=== PATIENT | female | born 1990 | race Caucasian/White ===

== ENCOUNTER → 2016-11-16 | Outpatient (CLI) | payer BC ==
[~2016-11-16] MED LIST: CYCL5TAB PO; ETONMIS VAGRING; FEXO1TAB49 PO; GLC/500 PO; IBUP-1050 PO
[2016-11-16 16:22] LABS: URINE APPEARANCE CLEAR (CLEAR); URINE BILIRUBIN NEG (NEG); URINE COLOR YELLOW; URINE NITRITE NEG (NEG); UROBILINOGEN NEG (NEG)
[2016-11-16 16:27] LABS: MANUAL MICROSCOPIC REQUIRED? NO; REVIEW REQ? NO
== END | disposition home or self-care (01) ==
LOC: C.LABSPEC 15:54
PROVIDERS: ATTEND Obstetrics & Gynecology
DX: R30.0 Dysuria (principal)

== ENCOUNTER → 2017-01-28 | Outpatient (CLI) | payer BC ==
[2017-01-28 10:52] LABS: PROLACTIN 22.39 ng/mL; THYROID STIMULATING HORMONE 2.37 uIu/ml (0.300-4.500)
[2017-01-28 10:54] LABS: CALCULATED INSULIN SENSITIVITY 0.281; GLUCOSE LOG 1.9243; INSULIN FASTING 42.9 mU/L (3-25); INSULIN LOG 1.6325
== END | disposition home or self-care (01) ==
LOC: C.LAB1850 09:12
PROVIDERS: ATTEND Obstetrics & Gynecology
DX: N92.6 Irregular menstruation, unspecified (principal)

== ENCOUNTER → 2017-02-02 | Outpatient (CLI) | payer BC ==
[2017-02-02 10:12] LABS: CHOLESTEROL/HDL RATIO 2.9
== END | disposition home or self-care (01) ==
LOC: C.LAB1850 08:22
PROVIDERS: ATTEND Obstetrics & Gynecology
DX: E88.81 Metabolic syndrome and other insulin resistance (principal)

== ENCOUNTER 2017-07-10 08:18 | Emergency (ER) | payer BC ==
[~2017-07-10] VITALS: Ht 165.1 cm; Wt 109.5 kg
[2017-07-10 08:23] VITALS: TEMP 37; Ht 165.1 cm; Wt 109.5 kg
[2017-07-10] MEDS ORDERED: GLC/500 PO (08:42)
[2017-07-10] MEDS ORDERED: FEXO1TAB49 PO (08:42)
[2017-07-10] MEDS ORDERED: CYCL5TAB PO (08:42)
[2017-07-10] MEDS ORDERED: ETONMIS VAGRING (08:42)
[2017-07-10] MEDS ORDERED: IBUP-1050 PO (08:42)
--- NOTE | 2017-07-10 09:37 | DIAGNOSTIC IMAGING REPORT ---
LUMBAR SPINE 5 VIEWS HISTORY: Low back pain. COMPARISON: None. FINDINGS: There is no fracture. No subluxation. Disc spaces are preserved. S1 is demonstrated to be a transitional vertebra. Hypoplastic S1-S2 disc space is noted. IMPRESSION: No fracture or subluxation within the lumbar spine. Electronically signed by: Dean Epps M.D. 07/10/2017 9:36 AM Dictated Date/Time: 07/10/2017 9:35 AM
[2017-07-10 10:02] VITALS: BP 123/74; PULSE 77; O2SAT 97
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
== END 2017-07-10 10:03 | disposition home or self-care (01) ==
LOC: C.EDB 08:19
DX: M54.16 Radiculopathy, lumbar region (principal)

== ENCOUNTER → 2017-09-28 | Outpatient (CLI) | payer BC ==
[2017-09-28 17:50] LABS: BASO % 0.5 %; BASO ABS # 0.05 K/uL (0-0.2); COMPLETE YES; EOS % 1.1 %; HEMATOCRIT 41.2 % (37-47); IG% 0.4 %; LYMPH % 30.8 %; LYMPH ABS # 2.98 K/uL (1.2-3.4); MEAN CELL VOLUME 88.6 fL (80-100); MEAN CORPUSCULAR HEMOGLOBIN 28.6 pg (25-34); MEAN CORPUSCULAR HGB CONC 32.3 g/dl (32-36); MEAN PLATELET VOLUME 9.6 fL (7.4-10.4); MONO % 7.1 %; NEUT % 60.1 %; PLATELET COUNT 353 K/uL (130-400); RED BLOOD COUNT 4.65 M/uL (4.2-5.4); WHITE BLOOD COUNT 9.66 K/uL (4.8-10.8)
== END | disposition home or self-care (01) ==
LOC: C.LABPVFM 13:58
PROVIDERS: ATTEND Family Medicine Adult Medicine
DX: R53.83 Other fatigue (principal)

== ENCOUNTER → 2017-11-09 | Outpatient (CLI) | payer OTHER ==
[2017-11-09 16:38] LABS: ALBUMIN 3.4 gm/dl (3.4-5.0); ALT/SGPT 26 U/L (12-78); BLOOD UREA NITROGEN 12 mg/dl (7-18); CALCIUM 9.6 mg/dl (8.5-10.1); CARBON DIOXIDE 24 mmol/L (21-32); CREATININE 0.82 mg/dl (0.60-1.20); GLUCOSE 76 mg/dl (70-99); POTASSIUM 3.8 mmol/L (3.5-5.1); SODIUM 137 mmol/L (136-145)
[2017-11-09 16:49] LABS: ALKALINE PHOSPHATASE 74 U/L (45-117); AST/SGOT 14 U/L (15-37); TOTAL PROTEIN 7.5 gm/dl (6.4-8.2)
[2017-11-10 07:20] LABS: HEMOGLOBIN A1C 5.3 % (4.5-5.6)
== END | disposition home or self-care (01) ==
LOC: C.LAB1850 14:48
PROVIDERS: ATTEND Family Medicine
DX: R53.82 Chronic fatigue, unspecified (principal)

== ENCOUNTER → 2018-01-05 | Outpatient (CLI) | payer OTHER | END | disposition home or self-care (01) | LOC: C.LAB1850 09:30 | PROVIDERS: ATTEND Family Medicine | DX: E55.9 Vitamin D deficiency, unspecified (principal) ==

== ENCOUNTER 2018-01-19 17:43 | Emergency (ER) | payer OTHER ==
[~2018-01-19] VITALS: Ht 167.6 cm; Wt 112.0 kg
[2018-01-19 17:45] VITALS: TEMP 36.6; Ht 167.6 cm; Wt 112.0 kg
[2018-01-19] MEDS ORDERED: SODIUM CHLORIDE 0.9% 500ML 500 ML IV STA (18:04)
[2018-01-19] MEDS ORDERED: LORAZEPAM 1 MG TAB PO STA (18:04)
--- NOTE | 2018-01-19 18:04 | EMERGENCY ROOM VISIT NOTE ---
History Report prepared by Rashida: Maurilio Barrera Under the Supervision of: Dr. Huy Ruiz M.D. First contact with patient: 17:49 Chief Complaint: TACHYCARDIA Stated Complaint: TACHYCARDIA, WEAKNESS, DIZZY History of Present Illness The patient is a 27 year old female with a past medical history of anxiety, PTSD, and pre-diabetes who presents to the ED with a cc of waxing and waning tachycardia beginning today. Positive for a headache, dizziness, and nausea. Negative for vomiting and leg edema. The patient states that she has been weaning off her propranolol because it has been giving her rebound tachycardia. She notes that today was her first day without taking any since she started taking it in August. She reports that her symptoms have been constant all day. The patient states that when she moves, her heart rate increases and her "head starts spinning." She notes that her symptoms improve when she lies down. She reports that she has a NuvaRing in place and that her last normal menstrual period was two months ago. Source of History: patient Onset: today Position: other (generalized) Quality: other (tachycardia) Timing: waxes/wanes Modifying Factors (Worsening): movement Modifying Factors (Relieving): other (lying down) Associated Symptoms: + headache, + nausea, No vomiting Note: The patient denies any leg edema. She also complains of dizziness. Review of Systems See HPI for pertinent positives and negatives. A total of ten systems were reviewed and were otherwise negative. Past Medical & Surgical Medical Problems: (1) Anxiety (2) Irregular Menstruation, Unspecified (3) Metabolic Syndrome (4) Pre-diabetes (5) PTSD (post-traumatic stress disorder) Surgical Problems: (1) No history of previous surgery Family History Cancer Diabetes mellitus Heart disease Hypertension Lung disease Social History Smoking Status: Never Smoker Alcohol Use: occasionally Marital Status: Housing Status: lives with family Occupation Status: unemployed Current/Historical Medications Scheduled Etonogestrel/Ethinyl Estradiol (Nuvaring), 1 EA VAGRING MONTHLY Fexofenadine Hcl (Lana Allergy), 180 MG PO DAILY Fluoxetine (Prozac), 40 MG PO DAILY Metformin Hcl (Glucophage), 500 MG PO QAM Metformin Hcl (Glucophage), 1,000 MG PO QPM Scheduled PRN Cyclobenzaprine Hcl (Flexeril), 5-10 MG PO Q12 PRN for Headache Ibuprofen (Advil), 600 MG PO Q4H PRN for Headache Allergies Coded Allergies: Naltrexone (Unverified Allergy, Severe, suicidal hallucinations, 01/19/18) Sulfa Antibiotics (Unverified Allergy, Intermediate, RASH, 07/10/17) Physical Exam Vital Signs Date Time Temp Pulse Resp B/P (MAP) Pulse Ox O2 Delivery O2 Flow Rate FiO2 01/19/18 20:07 75 16 115/87 98 01/19/18 19:09 80 16 130/82 98 Room Air 01/19/18 18:30 98 Room Air 01/19/18 18:11 72 01/19/18 18:08 98 Room Air 01/19/18 17:45 36.6 107 18 135/87 100 Room Air Physical Exam GENERAL: Awake, alert, mildly anxious-appearing, NAD, obese. HENT: Normocephalic, atraumatic. EYES: Normal conjunctiva. Sclera non-icteric. NECK: Supple. No nuchal rigidity. FROM. RESPIRATORY: CTAB, no rhonchi, wheezing, crackles CARDIAC: RRR, no MRG ABDOMEN: Soft, NTND, BS+ MSK: No chest wall TTP, no LE edema NEURO: GCS 15, CN 2-12 intact, moves all 4s on command SKIN: No rash or jaundice noted. Medical Decision & Procedures ER Provider Diagnostic Interpretation: Radiology results as stated below per my review and radiologist interpretation: SINGLE VIEW CHEST FINDINGS: An AP, portable, upright chest radiograph is obtained. No prior studies are available for comparison at the time of dictation. The examination is mildly degraded by portable technique and patient rotation. The cardiomediastinal silhouette is unremarkable. The lungs and pleural spaces are clear. No pneumothorax is seen. The bony thorax is grossly intact. IMPRESSION: No active disease in the chest. Electronically signed by: Cameron Yeager M.D. 01/19/2018 6:19 PM Laboratory Results 01/19/18 18:06 Red Blood Count 4.81, Mean Corpuscular Volume 84.2, Mean Corpuscular Hemoglobin 27.7, Mean Corpuscular Hemoglobin Concent 32.8, Mean Platelet Volume 9.0, Neutrophils (%) (Auto) 61.5, Lymphocytes (%) (Auto) 30.0, Monocytes (%) (Auto) 7.1, Eosinophils (%) (Auto) 0.7, Basophils (%) (Auto) 0.2, Neutrophils # (Auto) 7.47, Lymphocytes # (Auto) 3.64, Monocytes # (Auto) 0.86, Eosinophils # (Auto) 0.09, Basophils # (Auto) 0.03 01/19/18 18:06 Test 01/19/18 18:06 01/19/18 19:15 White Blood Count 12.15 K/uL (4.8-10.8) Red Blood Count 4.81 M/uL (4.2-5.4) Hemoglobin 13.3 g/dL (12.0-16.0) Hematocrit 40.5 % (37-47) Mean Corpuscular Volume 84.2 fL (80-100) Mean Corpuscular Hemoglobin 27.7 pg (25-34) Mean Corpuscular Hemoglobin Concent 32.8 g/dl (32-36) Platelet Count 364 K/uL (130-400) Mean Platelet Volume 9.0 fL (7.4-10.4) Neutrophils (%) (Auto) 61.5 % Lymphocytes (%) (Auto) 30.0 % Monocytes (%) (Auto) 7.1 % Eosinophils (%) (Auto) 0.7 % Basophils (%) (Auto) 0.2 % Neutrophils # (Auto) 7.47 K/uL (1.4-6.5) Lymphocytes # (Auto) 3.64 K/uL (1.2-3.4) Monocytes # (Auto) 0.86 K/uL (0.11-0.59) Eosinophils # (Auto) 0.09 K/uL (0-0.5) Basophils # (Auto) 0.03 K/uL (0-0.2) RDW Standard Deviation 43.2 fL (36.4-46.3) RDW Coefficient of Variation 13.9 % (11.5-14.5) Immature Granulocyte % (Auto) 0.5 % Immature Granulocyte # (Auto) 0.06 K/uL (0.00-0.02) Anion Gap 12.0 mmol/L (3-11) Est Creatinine Clear Calc Drug Dose 115.7 ml/min Estimated GFR () 98.8 Estimated GFR (Non- 85.3 BUN/Creatinine Ratio 13.0 (10-20) Calcium Level 9.0 mg/dl (8.5-10.1) Magnesium Level 2.4 mg/dl (1.8-2.4) Total Bilirubin 0.2 mg/dl (0.2-1) Direct Bilirubin < 0.1 mg/dl (0-0.2) Aspartate Amino Transf (AST/SGOT) 7 U/L (15-37) Alanine Aminotransferase (ALT/SGPT) 17 U/L (12-78) Alkaline Phosphatase 87 U/L (45-117) Total Protein 7.5 gm/dl (6.4-8.2) Albumin 3.3 gm/dl (3.4-5.0) Thyroid Stimulating Hormone (TSH) 2.030 uIu/ml (0.300-4.500) Urine Color YELLOW Urine Appearance CLEAR (CLEAR) Urine pH 6.5 (4.5-7.5) Urine Specific Irving 1.025 (1.000-1.030) Urine Protein NEG (NEG) Urine Glucose (UA) NEG (NEG) Urine Ketones NEG (NEG) Urine Occult Blood NEG (NEG) Urine Nitrite NEG (NEG) Urine Bilirubin NEG (NEG) Urine Urobilinogen NEG (NEG) Urine Leukocyte Esterase NEG (NEG) Urine WBC (Auto) 0 /hpf (0-5) Urine RBC (Auto) 0-4 /hpf (0-4) Urine Hyaline Casts (Auto) 1-5 /lpf (0-5) Urine Epithelial Cells (Auto) 5-10 /lpf (0-5) Urine Bacteria (Auto) NEG (NEG) Urine Test NEG (NEG) Laboratory results reviewed by me Medications Administered Medications (Trade) Dose Ordered Sig/Paramjit Route Start Time Stop Time Status Last Admin Dose Admin Lorazepam (Ativan Tab) 1 mg NOW STAT PO 01/19/18 18:04 01/19/18 18:06 DC 01/19/18 18:39 1 MG Sodium Chloride 500 ml @ 999 mls/hr Q31M STAT IV 01/19/18 18:04 01/19/18 18:34 DC 01/19/18 18:39 999 MLS/HR ECG Per My Interpretation Indication: tachycardia Rate (beats per minute): 82 Rhythm: normal sinus Findings: RBBB (incomplete), T-wave inversion (in lead 3), other (Normal intervals, normal axis) Comparison ECG Date: no prior available ED Course 1752: The patient was evaluated in room C9. A complete history and physical exam was performed. 2151: I reevaluated the patient. Discussed results and discharge instructions: She verbalized understanding and agreement. The patient is ready for discharge. Medical Decision Nursing notes reviewed. Ancillary studies and prior records reviewed. The patient is a 27 year old female with a past medical history of anxiety, PTSD, and pre-diabetes who presents to the ED with a cc of waxing and waning tachycardia beginning today. Positive for a headache and nausea. Negative for vomiting and leg edema. Differential diagnosis: Etiologies such as premature contractions, electrolyte abnormality, cardiac dysrhythmia, thyroid dysfunction, pulmonary embolism, infection, gastrointestinal, as well as others were entertained. Patient was seen and evaluated the bedside. Patient does have a history of anxiety and has been on propranolol for anxiety. Patient has been self weaning and was initially on 60 twice daily. Yesterday she did take 10 twice daily. Patient states that she does feel that she has palpitations and that her heart races. Patient denies feeling anxious although she does say that the racing heart does make her feel mildly uncomfortable and dizzy. Patient denies any syncope. Patient denies any prolonged or recent vaginal bleeding, bright red blood per rectum, melenic stool, or vomiting with blood. Patient's LMP was 2 months ago. On exam the patient is very well-appearing. Patient did have blood work completed, EKG, TSH, and was given some p.o. Ativan and IV fluids. Patient EKG was fairly unremarkable. It did show incomplete right bundle branch block and a TW I in lead III but not in contiguous leads. Patient denies any chest pains. Less likely ACS. Patient PE RC questionably of 1 given her intermittent tachycardia however I believe this is more related to possible anxiety as well as being taken off of her propranolol. Less likely PE. Patient has a normal H&H. Patient has normal kidney function. Patient did have mild hypokalemia and was told she may supplement this in her diet. Patient was told to follow-up with her PCP to discuss additional studies, possible referral, and/or medications other than propranolol for rate control. Patient was given strict follow-up, discharge, and return precautions. All questions were answered. Patient was deemed suitable for outpatient follow-up at this time. Patient agreed with the plan of care and was safely discharged home. Medication Reconcilliation Current Medication List: was personally reviewed by me Blood Pressure Screening Patient's blood pressure: Normal blood pressure Blood pressure disposition: Did not require urgent referral Impression Primary Impression: Heart palpitations Additional Impression: Hypokalemia Scribe Attestation The scribe's documentation has been prepared under my direction and personally reviewed by me in its entirety. I confirm that the note above accurately reflects all work, treatment, procedures, and medical decision making performed by me. Departure Information Dispostion Home / Self-Care Referrals Janessa Melton (PCP) Forms HOME CARE DOCUMENTATION FORM, IMPORTANT VISIT INFORMATION, WORK / SCHOOL INSTRUCTIONS Patient Instructions Heart Palpitations, Hypokalemia De, My [facility] Additional Instructions Please return to the emergency department if you have worsening or recurrent symptoms not amenable to at-home treatment. Please call for a follow-up appointment with her primary care physician. Please take your medications as prescribed. If you have other concerns and/or complaints please feel free to also call your primary care physician's office or return the ED for further evaluation, management, and treatment. You may take 600 mg Ibuprofen every 6 hours as needed for pain with food for no more than 2 consecutive days. You may take tylenol 1000 mg every 6 hours as needed for pain. You may take motrin and tylenol separately or at the same time. Follow-up with your PCP to discuss additional studies, possible referral, and/ or medications other than propranolol for rate control. You have been examined and treated today on an emergency basis only. This is not a substitute for, or an effort to provide, complete comprehensive medical care. It is impossible to recognize and treat all injuries or illnesses in a single emergency department visit. It is therefore important that you follow up closely with [facility], your PCP, and/or your specialist(s). Call as soon as possible for an appointment. Thank you for your time and consideration. I look forward to speaking with you again soon. Please don't hesitate to call us if you have any questions. Problem Qualifiers
[2018-01-19 18:08] VITALS: O2SAT 98
[2018-01-19 18:20] LABS: BASO % 0.2 %; BASO ABS # 0.03 K/uL (0-0.2); EOS % 0.7 %; EOS ABS # 0.09 K/uL (0-0.5); HEMATOCRIT 40.5 % (37-47); HEMOGLOBIN 13.3 g/dL (12.0-16.0); IG# 0.06 K/uL (0.00-0.02); LYMPH ABS # 3.64 K/uL (1.2-3.4); MEAN CELL VOLUME 84.2 fL (80-100); MEAN CORPUSCULAR HEMOGLOBIN 27.7 pg (25-34); MEAN CORPUSCULAR HGB CONC 32.8 g/dl (32-36); MONO % 7.1 %; MONO ABS # 0.86 K/uL (0.11-0.59); NEUT % 61.5 %; NEUT ABS # 7.47 K/uL (1.4-6.5); PLATELET COUNT 364 K/uL (130-400); RED CELL DISTRIBUTION WIDTH CV 13.9 % (11.5-14.5); RED CELL DISTRIBUTION WIDTH SD 43.2 fL (36.4-46.3); WHITE BLOOD COUNT 12.15 K/uL (4.8-10.8)
--- NOTE | 2018-01-19 18:21 | DIAGNOSTIC IMAGING REPORT ---
SINGLE VIEW CHEST CLINICAL HISTORY: Palpitations. FINDINGS: An AP, portable, upright chest radiograph is obtained. No prior studies are available for comparison at the time of dictation. The examination is mildly degraded by portable technique and patient rotation. The cardiomediastinal silhouette is unremarkable. The lungs and pleural spaces are clear. No pneumothorax is seen. The bony thorax is grossly intact. IMPRESSION: No active disease in the chest. Electronically signed by: Cameron Yeager M.D. 01/19/2018 6:19 PM Dictated Date/Time: 01/19/2018 6:19 PM
[2018-01-19 18:38] LABS: ALBUMIN 3.3 gm/dl (3.4-5.0); ALT/SGPT 17 U/L (12-78); AST/SGOT 7 U/L (15-37); BLOOD UREA NITROGEN 12 mg/dl (7-18); CARBON DIOXIDE 20 mmol/L (21-32); CREATININE 0.91 mg/dl (0.60-1.20); GLUCOSE 86 mg/dl (70-99); POTASSIUM 3.4 mmol/L (3.5-5.1); SODIUM 137 mmol/L (136-145)
[2018-01-19] MEDS ORDERED: GLC/500 PO (18:47)
[2018-01-19 18:48] LABS: ALKALINE PHOSPHATASE 87 U/L (45-117); TOTAL PROTEIN 7.5 gm/dl (6.4-8.2)
[2018-01-19] MEDS ORDERED: FLUO40CA8 PO (18:48)
[2018-01-19 20:07] VITALS: BP 115/87; PULSE 75; O2SAT 98
== END 2018-01-19 20:08 | disposition home or self-care (01) ==
LOC: C.EDB 17:44 → C.EDA 20:08
DX: R00.2 Palpitations (principal); E87.6 Hypokalemia; F41.9 Anxiety disorder, unspecified; F43.10 Post-traumatic stress disorder, unspecified; Z83.3 Family history of diabetes mellitus; Z82.49 Family history of ischemic heart disease and other diseases of the circulatory system

== ENCOUNTER 2018-12-12 14:24 | Inpatient (IN) ==
[2018-12-12 15:22] LABS: Appearance Urine Clear (Clear); Bilirubin Urine Negative (Negative); Blood Urine Negative (Negative); Color Urine Dark Yellow; Glucose Urine UA Negative (Negative); Ketones Urine Trace (Negative); Leukocyte Esterase Urine Negative (Negative); Nitrite Urine Negative (Negative); Protein Urine Negative (Negative); Specific Gravity Urine 1.025 (1.000-1.030); Urobilinogen Urine Negative (Negative)
[2018-12-12 15:50] LABS: Amphetamines+Metham, Urine Neg (Neg); Barbiturates, Urine Neg (Neg); Benzodiazepine, Urine Neg (Neg); Cocaine, Urine Neg (Neg); MDMA (Ecstacy), Urine Neg (Neg); Methadone, Urine Neg (Neg); Opiate, Urine Neg (Neg); Phencyclidine, Urine Neg (Neg)
[2018-12-12 15:57] LABS: Basophils # (auto) 0.02 K/uL (0-0.2); Basophils % (auto) 0.4 %; Eosinophils # (auto) 0.16 K/uL (0-0.5); Eosinophils % (auto) 3.3 %; Hematocrit (blood only) 42.5 % (37-47); Hemoglobin 14.2 g/dL (12.0-16.0); Immature Granulocytes # (auto) 0.01 K/uL (0.00-0.02); Immature Granulocytes % (auto) 0.2 %; Lymphocytes # (auto) 1.31 K/uL (1.2-3.4); Lymphocytes % (auto) 26.7 %; Mean Corpuscular Hgb Conc 33.4 g/dL (32-36); Mean Corpuscular Volume 89.1 fL (80-100); Mean Platelet Volume 9.6 fL (7.4-10.4); Monocytes # (auto) 0.33 K/uL (0.11-0.59); Monocytes % (auto) 6.7 %; Neutrophils # (auto) 3.07 K/uL (1.4-6.5); Neutrophils % (auto) 62.7 %; Platelet Count 242 K/uL (130-400); RDW Coefficient of Variation 14.2 % (11.5-14.5); RDW Standard Deviation 46.6 fL (36.4-46.3); Red Blood Count 4.77 M/uL (4.2-5.4)
[2018-12-12] MEDS ORDERED: KETOROLAC TROMETHAMINE 15 MG/ML VIAL IM STA (16:00)
[2018-12-12 16:25] LABS: Acetaminophen < 2 ug/ml (10-30); Albumin Level 3.5 gm/dl (3.4-5.0); BUN Creatinine Ratio 7.3 (10-20); Calcium 8.7 mg/dl (8.5-10.1); Creatinine Clr Calc Pharmacy 118.5 ml/min; Est GFR (African American) 105.8; Est GFR (Non-African American) 91.3; Potassium 3.9 mmol/L (3.5-5.1)
[2018-12-12 16:26] LABS: Salicylate < 1.7 mg/dl (2.8-20)
[2018-12-12 16:36] LABS: Albumin Globulin Ratio 0.9 (0.9-2); Bilirubin,Total 0.4 mg/dl (0.2-1); Globulin 3.7 gm/dl (2.5-4.0); Total Protein 7.2 gm/dl (6.4-8.2)
--- NOTE | 2018-12-12 18:02 | Emergency Department Note ---
Entered by Kina Ansari acting as a scribe for History of Present Illness General Chief complaint: Mental Health Evaluation Stated complaint: DANGER TO SELF Time Seen by Provider: 12/12/18 14:47 Source: patient History of Present Illness Onset (ago): day(s) (today) Location: head Pain Consistency: + other (worsening) Maximum Pain Intensity: 7 Quality: + other (mental health evaluation) Associated symptoms: + denies other symptoms (HI), + loss of appetite and + other (SI, difficulty concentrating, decreased energy, guilt about being alive, loss of interest in things she used to find odette in, increased sleeping) The patient is a 27 year old female who presents to the Emergency Room for a mental health evaluation. The patient states that she has a history of depression and recently they have been changing her medications because nothing is working. She states that she has been having a lot of side effects from the one she is currently on as well. She states that today she was talking to her therapist and psychiatrist�s JUSTINA. She states that they recommend she seek inpatient treatment as they don�t think she is safe at home. The patient states that she �doesn�t want to be alive� and �doesn�t think it is worth living anymore.� She states that she has no energy and motivation, but if she did, she would kill herself. The patient complains loss of appetite, difficulty concentrating, decreased energy, guilt about being alive, loss of interest in things she used to find odette in, and increased sleeping. The patient denies the use of pills, access to weapons, homicidal ideations, and the chance of . The patient notes that she is on control. Home Medications Home Medications Medication Instructions Recorded Confirmed Type citalopram [Celexa] 20 mg PO DAILY 12/12/18 12/12/18 History cyclobenzaprine 5 - 10 mg PO HS PRN 12/12/18 12/12/18 History etonogestrel-ethinyl estradiol 1 applic VAGINAL MONTHLY 12/12/18 12/12/18 History [NuvaRing] fexofenadine 180 mg PO HS 12/12/18 12/12/18 History ibuprofen 600 mg PO QID PRN 12/12/18 12/12/18 History Allergies Allergy/AdvReac Type Severity Reaction Status Date / Time naltrexone Allergy Severe suicidal Unverified 01/19/18 18:44 hallucinations Sulfa (Sulfonamide Allergy Intermediate RASH Unverified 07/10/17 08:39 Antibiotics) Past Med/Surg History Medical History Anxiety PTSD (post-traumatic stress disorder) Lumbar back pain with radiculopathy affecting left lower extremity (Acute) Pre-diabetes Depression Family History Other Cancer Diabetes HTN (hypertension) Heart disease Lung disease Social History marital status: Current Living Situation: Spouse current occupational status: unemployed Feels Safe at Home: Yes Smoking Status: Never smoker Preferred Language: Latvian Review of Systems See HPI for pertinent positives & negatives. and A total of 10 systems reviewed and were otherwise negative Physical Exam Vital Signs Vital Signs - 24 hr 12/12/18 14:32 12/12/18 16:43 12/12/18 19:05 Temperature 36.9 C Temperature Source Oral Sepsis Recent Fever Within 48 Hours No Sepsis New/Unexplained Change in Mental Status No Sepsis Action Taken by Nursing No Action Required Pulse Rate 82 70 Pulse Rate [Apical] 66 Pulse Strength Normal Respiratory Rate 18 18 18 Respiratory Effort / Characteristics Non-Labored Spontaneous Respiratory Depth Normal Respiratory Pattern Regular Blood Pressure 126/82 127/85 Blood Pressure [Left Arm] 133/83 Blood Pressure Mean 96 Blood Pressure Mean [Left Arm] 99 Pulse Oximetry 98 99 99 Oxygen Delivery Method Room Air Room Air Physical Exam GENERAL: She is oriented to person, place, and time. She appears well- developed and well-nourished. She does not appear distressed. HENT: Exam performed. -Head: Normocephalic and atraumatic. -Right Ear: External ear normal. No mastoid tenderness. -Left Ear: External ear normal. No mastoid tenderness. -Mouth/Throat: The oropharynx is clear and moist. No trismus in the jaw. No dental abscesses or uvula swelling. No oropharyngeal exudate or tonsillar abscesses. EYES: Conjunctivae and EOM are normal. Pupils are equal, round, and reactive to light. Right eye exhibits no discharge. Left eye exhibits no discharge. No scleral icterus. NECK: Normal range of motion. Neck supple. No JVD present. No spinous process tenderness present. No carotid bruit present. No rigidity. No tracheal deviation and normal range of motion present. No Brudzinski's sign and no Kernig 's sign noted. CV: Normal rate, regular rhythm, normal heart sounds and intact distal pulses. There is no peripheral edema. Palpable radial pulses bue. PULM/CHEST: Effort normal and breath sounds normal. No respiratory distress. No stridor. She has no wheezes. She has no rales. -Chest Wall: She exhibits no tenderness. ABD: The abdomen is soft. Bowel sounds are normal. She has no distension. No mass is present. There is no tenderness. There is no rebound, no guarding, no Torrez's sign and no tenderness at McBurney's point. Rovsig negative MUSC/SKEL: Normal range of motion. There is no peripheral edema, tenderness or deformity. LYMPH: No cervical adenopathy. NEURO: She is alert and oriented to person, place, and time. She has normal strength. No cranial nerve deficit or sensory deficit. Coordination and gait normal. GCS eye subscore is 4. GCS verbal subscore is 5. GCS motor subscore is 6. Cerebellar tests wnl. SKIN: Skin is warm and dry. She is not diaphoretic. PSYCH: She is depressed and tearful. Positive SI. Negative HI. Behavior is normal. Course 1523: Past medical records reviewed. The patient was evaluated in room A8, and a complete history and physical examination were performed. 180: Vital signs stable. Patient medically cleared. Awaiting psychiatric evaluation and placement. 1906: Patient will be admitted to the psychiatric floor. Administered Medications Cyclobenzaprine HCl (Flexeril) 5 mg PO QAM [facility] Stop: 01/11/19 18:59 Last Admin: 12/12/18 18:59 Dose: 5 mg Discontinued Medications Ketorolac Tromethamine (Toradol) 15 mg IM NOW STA Stop: 12/12/18 16:01 Last Admin: 12/12/18 16:14 Dose: 15 mg Medical Decision Making Medical Records Attestation: I reviewed the patient's medical records. Home Medications Current Medication List: was personally reviewed by me Laboratory Data Attestation: I reviewed the patient's lab results. Result diagrams: 12/12/18 15:31 12/12/18 15:31 Lab Results 12/12/18 12/12/18 12/12/18 Range/Units 14:50 14:50 15:31 WBC 4.90 (4.8-10.8) K/uL RBC 4.77 (4.2-5.4) M/uL Hgb 14.2 (12.0-16.0) g/dL Hct 42.5 (37-47) % MCV 89.1 (80-100) fL MCH 29.8 (25-34) pg MCHC 33.4 (32-36) g/dL RDW Std Deviation 46.6 H (36.4-46.3) fL RDW Coeff of Ren 14.2 (11.5-14.5) % Plt Count 242 (130-400) K/uL MPV 9.6 (7.4-10.4) fL Immature Gran % (Auto) 0.2 % Neut % (Auto) 62.7 % Lymph % (Auto) 26.7 % [place] % (Auto) 6.7 % Eos % (Auto) 3.3 % Baso % (Auto) 0.4 % Immature Gran # (Auto) 0.01 (0.00-0.02) K/uL Neut # (Auto) 3.07 (1.4-6.5) K/uL Lymph # (Auto) 1.31 (1.2-3.4) K/uL [place] # (Auto) 0.33 (0.11-0.59) K/uL Eos # (Auto) 0.16 (0-0.5) K/uL Baso # (Auto) 0.02 (0-0.2) K/uL Sodium (136-145) mmol/L Potassium (3.5-5.1) mmol/L Chloride (98-107) mmol/L Carbon Dioxide (21-32) mmol/L Anion Gap (3-11) BUN (7-18) mg/dl Creatinine (0.6-1.2) mg/dl Est Cr Clr Drug Dosing ml/min Est GFR ( Amer) Est GFR (Non-Af Amer) BUN/Creatinine Ratio (10-20) Glucose (70-99) mg/dl Calcium (8.5-10.1) mg/dl Total Bilirubin (0.2-1) mg/dl AST (15-37) U/L ALT (12-78) U/L Alkaline Phosphatase (45-117) U/L Total Protein (6.4-8.2) gm/dl Albumin (3.4-5.0) gm/dl Globulin (2.5-4.0) gm/dl Albumin/Globulin Ratio (0.9-2) TSH (0.300-4.500) uIu/ml Urine Color Dark Yellow Urine Appearance Clear (Clear) Urine pH 6.0 (4.5-7.5) Ur Specific [place] 1.025 (1.000-1.030) Urine Protein Negative (Negative) Urine Glucose (UA) Negative (Negative) Urine Ketones Trace H (Negative) Urine Blood Negative (Negative) Urine Nitrite Negative (Negative) Urine Bilirubin Negative (Negative) Urine Urobilinogen Negative (Negative) Ur Leukocyte Esterase Negative (Negative) Salicylates (2.8-20) mg/dl Urine Opiates Screen Neg (Neg) Ur Methadone, Qual Neg (Neg) Acetaminophen (10-30) ug/ml Urine Barbiturates Neg (Neg) Ur Phencyclidine (PCP) Neg (Neg) U Amphetamin/Meth Scrn Neg (Neg) MDMA (Ecstasy) Screen Neg (Neg) U Benzodiazepines Scrn Neg (Neg) Ur Cocaine Metabolite Neg (Neg) U Marijuana (THC) Screen Neg (Neg) Ethyl Alcohol mg/dL (0-3) mg/dl 12/12/18 12/12/18 12/12/18 Range/Units 15:31 15:31 15:31 WBC (4.8-10.8) K/uL RBC (4.2-5.4) M/uL Hgb (12.0-16.0) g/dL Hct (37-47) % MCV (80-100) fL MCH (25-34) pg MCHC (32-36) g/dL RDW Std Deviation (36.4-46.3) fL RDW Coeff of Ren (11.5-14.5) % Plt Count (130-400) K/uL MPV (7.4-10.4) fL Immature Gran % (Auto) % Neut % (Auto) % Lymph % (Auto) % [place] % (Auto) % Eos % (Auto) % Baso % (Auto) % Immature Gran # (Auto) (0.00-0.02) K/uL Neut # (Auto) (1.4-6.5) K/uL Lymph # (Auto) (1.2-3.4) K/uL [place] # (Auto) (0.11-0.59) K/uL Eos # (Auto) (0-0.5) K/uL Baso # (Auto) (0-0.2) K/uL Sodium 138 (136-145) mmol/L Potassium 3.9 (3.5-5.1) mmol/L Chloride 107 (98-107) mmol/L Carbon Dioxide 25 (21-32) mmol/L Anion Gap 6.0 (3-11) BUN 6 L (7-18) mg/dl Creatinine 0.86 (0.6-1.2) mg/dl Est Cr Clr Drug Dosing 118.5 ml/min Est GFR ( Amer) 105.8 Est GFR (Non-Af Amer) 91.3 BUN/Creatinine Ratio 7.3 L (10-20) Glucose 75 (70-99) mg/dl Calcium 8.7 (8.5-10.1) mg/dl Total Bilirubin 0.4 (0.2-1) mg/dl AST 10 L (15-37) U/L ALT 17 (12-78) U/L Alkaline Phosphatase 96 (45-117) U/L Total Protein 7.2 (6.4-8.2) gm/dl Albumin 3.5 (3.4-5.0) gm/dl Globulin 3.7 (2.5-4.0) gm/dl Albumin/Globulin Ratio 0.9 (0.9-2) TSH 0.762 (0.300-4.500) uIu/ml Urine Color Urine Appearance (Clear) Urine pH (4.5-7.5) Ur Specific [place] (1.000-1.030) Urine Protein (Negative) Urine Glucose (UA) (Negative) Urine Ketones (Negative) Urine Blood (Negative) Urine Nitrite (Negative) Urine Bilirubin (Negative) Urine Urobilinogen (Negative) Ur Leukocyte Esterase (Negative) Salicylates < 1.7 L (2.8-20) mg/dl Urine Opiates Screen (Neg) Ur Methadone, Qual (Neg) Acetaminophen < 2 L (10-30) ug/ml Urine Barbiturates (Neg) Ur Phencyclidine (PCP) (Neg) U Amphetamin/Meth Scrn (Neg) MDMA (Ecstasy) Screen (Neg) U Benzodiazepines Scrn (Neg) Ur Cocaine Metabolite (Neg) U Marijuana (THC) Screen (Neg) Ethyl Alcohol mg/dL < 3.0 (0-3) mg/dl Blood Pressure Blood Pressure Findings: Normal blood pressure Blood Pressure Disposition: did not require urgent referral [facility] Narrative 1523: Past medical records reviewed. The patient was evaluated in room A8, and a complete history and physical examination were performed. 180: Vital signs stable. Patient medically cleared. Awaiting psychiatric evaluation and placement. 1906: Patient will be admitted to the psychiatric floor. Impression & Plan Depression, Suicidal ideations Discharge Plan Visit Data Chief Complaint: Mental Health Evaluation Stated Complaint: DANGER TO SELF ED Provider: Livan Buckner Discharge Problem: Depression, Suicidal ideations Discharge Instructions Interventions: ED Discharge Assessment Last Done: 12/12/18 19:05 Forms Stand Alone Forms: My [facility] Prescriptions Prescriptions: No Action citalopram [Celexa] 20 mg Tablet 20 mg PO DAILY RF: 0 fexofenadine 180 mg Tablet 180 mg PO HS RF: 0 ibuprofen 200 mg Tablet 600 mg PO QID PRN (Reason: Pain) RF: 0 etonogestrel-ethinyl estradiol [NuvaRing] 0.12-0.015 mg/24 hr ring 1 applic Vaginal MONTHLY RF: 0 cyclobenzaprine 5 mg Tablet 5 - 10 mg PO HS PRN (Reason: Muscle Pain) RF: 0 Referrals Referrals: Janessa Melton CRNP [Primary Care Provider] - The scribe's documentation has been prepared under my direction and personally reviewed by me in its entirety. I confirm that the note above accurately reflects all work, treatment, procedures, and medical decision making performed by me.
[2018-12-12] MEDS ORDERED: CYCLOBENZAPRINE HCL 5 MG TAB PO SCH (19:00)
[2018-12-12] MEDS ORDERED: ACETAMINOPHEN 325 MG TAB PO PRN (19:28)
[2018-12-12] MEDS ORDERED: MAGNESIUM HYDROXIDE SUSP 30 ML UDC PO PRN (19:28)
[2018-12-12] MEDS ORDERED: ALUMINUM/MAGNESIUM SUSP 30 ML UDC PO PRN (19:28)
[2018-12-12] MEDS ORDERED: SODIUM CHLORIDE 0.65% NA SOLN 45 ML (OCEAN) PRN (19:28)
[2018-12-12] MEDS ORDERED: BISMUTH SUBSALICYLATE PER ML OMNICELL CHARGE PO PRN (19:28)
[2018-12-12] MEDS: CITALOPRAM 20 MG TAB PO SCH (21:04)
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
[2018-12-13] MEDS: IBUPROFEN 600 MG TAB PO PRN (19:10)
[2018-12-13] MEDS: CITALOPRAM 20 MG TAB PO SCH (21:13)
[2018-12-14] MEDS ORDERED: VENLAFAXINE HCL XR 37.5 MG CAPXR PO SCH (09:00)
[2018-12-14] MEDS: IBUPROFEN 600 MG TAB PO PRN (10:43)
--- NOTE | 2018-12-14 11:09 | Psychiatric Progress Note ---
Date of Service December 14, 2018 Impression / Recommendations Impression 27-year-old woman currently in treatment with Delmy GAXIOLA at [facility], who was admitted with severe depression and suicidality. Records from [facility] were reviewed regarding previous medication trials, and she is being cross tapered from citalopram to venlafaxine XR. She had a family meeting with her today, and would like to coordinate with her advisor at the [employer] regarding school stress. Continue to work on PTSD symptoms with mindfulness and grounding. She requires inpatient mental health treatment due to the severity of her condition and the risk for self-harm if discharged. (1) Depression: 12/13 - Obtain records from [facility] for past med trials before making medication recommendations - records reveal past trials of Prozac, Klonopin and propranolol in addition to the Trintellix. The patient has no memory of a trial of Effexor or Cymbalta and so will proceed with a trial of Effexor 37.5 mg tomorrow AM and increasing to 75 mg thereafter. - Coordinate with current providers - Family meeting - Q 15 min checks for safety - Encourage participation in group and individual counseling - Assist the patient to explore mindfulness/grounding exercises - Encourage exercise - Safety planning 12/14 -Continue cross taper from citalopram to venlafaxine XR. -Family meeting with today. (2) PTSD (post-traumatic stress disorder): 12/13 - Obtain records from [facility] for past med trials before making medication recommendations - Coordinate with current providers - Family meeting - Q 15 min checks for safety - Encourage participation in group and individual counseling - Assist the patient to explore mindfulness/grounding exercises - Encourage exercise Inventory Assets Strengths: Intelligence, desire to get well Needs: Healthy coping strategies Risk Factors Assessment Male: No : Yes Do You Have Access To A Gun?: No Health Problems: No Mental Health Diagnoses: Yes Substance Use Disorders: No Previous Attempt: No Family History of Suicide: No Previous Psychiatric Hospitalization: No Smoker: No Protective Factors Assessment : Yes Responsible for Young Children: No 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 She is being cross tapered from citalopram to venlafaxine XR. Chief Complaint "I think really well, getting away from what was stressing me made a world of difference". Review of Systems Sleep Information Total Hours of Sleep: 8.25 Sleep Comments: pt appeared to sleep 1.25 hrs during evening shift. pt on q-15 minute shift Meal Information Percent Meal Consumed - Breakfast: 100 Percent Meal Consumed - Lunch: 75 Percent Meal Consumed - Dinner: 75 Subjective Subjective Patient was seen & assessed and interval progress reviewed with Treatment Team. Staff report she continues to endorse suicidal thoughts, feels safe on the unit, but not outside the hospital. She had a meeting with her and the social and human services assistant this morning. She is going to some groups, but says she does not like attending them when games are involved. She refused to state goals for her treatment, and told staff she felt irritated that she was being forced to formulate goals, as this sets her up to fail. She has been tearful at times, and reports feeling overwhelmed. Today, she was seen with Tracee Yancey, MS 4. She reports mood and anxiety have improved, which she attributes to being away from her stressors, primarily school. She states she has always been a procrastinator, but was always able to get by, "always played with the rules, would see if I could get an extension," until this semester. She reports low motivation, which resulted in her not caring if she did not keep up with her work. Although she feels better here being away from school, she knows she needs to deal with the stressor, and plans to get in touch with her advisor today to find out what works she needs to make up, so that she can work on a plan to catch up over spring break. She reports good sleep and appetite, notes she has been sleeping more to avoid dealing with stress. She reports suicidal thoughts are "better," here but again attributes this to being away from her stressors. She states that her poor performance in school is what led to suicidal thoughts, as she felt was the only way out of her situation. Summary of Past History Records from [facility] reviewed: Diagnosed with major depressive disorder, recurrent, PTSD, and binge eating disorder. At 11/28/2018 appointment, patient's citalopram had recently been increased to 40 mg daily, which initially helped with mood symptoms, but only briefly, and then she began feeling more depressed again. She was started on Trintellix, with a plan to discontinue citalopram if it was effective. At her 11/15/2018 appointment, she reported school stress, with intermittent periods of low mood, that were more pronounced, occurring 4 days a week, and interfering with ability to keep up with schoolwork. She reported episodic anxiety. Citalopram was increased to 40 mg daily. In 08/2018, she reported doing well on citalopram 20 mg daily, with resolution of depressive symptoms and only mild anxiety, not interfering with functioning. She had been prescribed buspirone, but never started it. Earlier in the month she would have had been seen and reported high anxiety with chest pressure and hypervigilance, excessive sweating, and difficulty functioning due to anxiety. Her Celexa was increased from 10 mg daily to 20 mg daily. At her 08/17/2018 appointment, she was taking fluoxetine 20 mg daily, which helped for a few days, but then mood worsened. She reported ongoing depressive and anxiety symptoms, and her dose was increased to 40 mg daily, and she was prescribed buspirone. Medication Trials Citalopram up to 40 mg daily Escitalopram Fluoxetine 40 mg -anxiety worsened Duloxetine Trintellix Buspirone -prescribed, but patient never took it Propanolol Clonazepam as needed Physical Exam Psychiatric Obese WF appearing stated age. Casually dressed, appropriate groomed, short hair and glasses. Seated in NAD. Calm and cooperative. Fair eye contact and no abnormal movements. Gait and station are normal. Speech is spontaneous, normal rate, volume, and tone. Mood is "better," affect is blunted but reactive and appropriate. Thoughts are linear and goal directed. Endorses SI, no HI. Alert and oriented. Level of intelligence consistent with educational level. Insight and judgment are fair. Vital Signs (Past 24 Hours) Last Vital Signs Temp 36.9 C 12/14/18 06:51 Pulse 76 12/14/18 06:51 Resp 16 12/14/18 06:51 BP 118/71 12/14/18 06:51 Pulse Ox 97 12/12/18 20:11 Results & Data Current Inpatient Medications Current Inpatient Medications: Current Inpatient Medications Acetaminophen (Tylenol) 650 mg PO Q4H PRN PRN Reason: Headache or Minor Fever Stop: 01/11/19 19:27 Al Hydrox/Mg Hydrox/Simethicone (Maalox) 30 ml PO Q4H PRN PRN Reason: GI Upset Stop: 01/11/19 19:27 Bismuth Subsalicylate (Kaopectate) 15 ml PO PRN PRN PRN Reason: Loose Stool Stop: 01/11/19 19:27 Citalopram Hydrobromide (Celexa) 20 mg PO PM WILLAM Stop: 01/11/19 20:59 Last Admin: 12/13/18 21:13 Dose: 20 mg Documented by: Hydroxyzine HCl (Vistaril) 50 mg PO HSZ PRN PRN Reason: Insomnia Stop: 01/11/19 19:27 Hydroxyzine HCl (Vistaril) 25 mg PO Q4H PRN PRN Reason: Anxiety Stop: 01/11/19 19:27 Last Admin: 12/13/18 08:37 Dose: 25 mg Documented by: Ibuprofen (Motrin) 600 mg PO Q6H PRN PRN Reason: Pain Stop: 01/12/19 18:59 Last Admin: 12/14/18 10:43 Dose: 600 mg Documented by: Magnesium Hydroxide (Milk Of Magnesia) 30 ml PO DAILY PRN PRN Reason: Heartburn Stop: 01/11/19 19:27 Sodium Chloride ([place] Nasal) 1 - 2 sprays NA PRN PRN PRN Reason: Nasal Dryness/Congestion Stop: 01/11/19 19:27 Venlafaxine HCl (Effexor Extended Release) 37.5 mg PO QAM WILLAM; Taper Stop: 12/25/18 08:59 Last Admin: 12/14/18 08:12 Dose: 37.5 mg Documented by: Post Discharge Appointments Primary Care Physician Name Of Family Doctor: Janessa [facility], Psychiatrist Name of Psychiatrist: Delmy Sheffield PA-C Psychiatrist's Therapist Name of Therapist: Dasia Mejias Date of Therapist Appointment: 12/19/18 Time of Therapist Appointment: 11am Contact Information Discharge Discharge Address: [address] [place] [address] CPT Code CPT Code 93506 (1) Depression Depression Type: unspecified Qualified Code(s): F32.9 - Major depressive disorder, single episode, unspecified
--- NOTE | 2018-12-14 12:58 | Medical Student Progress Note ---
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 She reports overall improvement but attributes this to being away from her stressors. She is still working on coping mechanisms so she is successful upon discharge. 1. Depressive episode - Continue cross taper of citalopram to venlafaxine. Stop citalopram and start 75 mg of venlafaxine on 12/15. She is concerned about the activating effects from the norepinphrine component, but she was counseled that this is an effective medication for both depression and anxiety. - Plan for family meeting with - Q15 checks for safety - Encourage participation in group therapy and activities. - Develop safety plan - Coordinate outpatient care and plan with sales advisory manager. 2. PTSD - SNRI and therapy as above. - She may take 25 or 50 mg hydroxyzine PRN for anxiety. Disposition: She requires continued hospitalization for medication optimization and safety planning. 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 She says she is feeling better and thinks this is because she is away from school. She says "getting away from what's stressing me out has made a world of difference" and that she's in a "much better place." She states that she's always been a procrastinator, but her worsening "lack of motivation and caring to do work" has removed "the pressure of a deadline." This has caused her to fall behind on her schoolwork and have thoughts that she's "not worthy" or "doesn't belong here." She says that these thoughts have led her to feel the "need to be out" with "out" meaning . Her goals for care include "getting her caring and confidence back" so she can be successful in school. She plans to reach out to advisor to devise a to-do list on how to catch up and hopes that spring break will allow her to do so. Her sleep and appetite are both "fine." She denies having side effects from her medications. Physical Exam Vital Signs (Past 24 Hours): Last Vital Signs Temp 36.9 C 12/14/18 06:51 Pulse 76 12/14/18 06:51 Resp 16 12/14/18 06:51 BP 118/71 12/14/18 06:51 Pulse Ox 97 12/12/18 20:11 Psychiatric: Orientation: alert, oriented x 3 and cooperative Apperance: appropriately dressed and appropriately groomed Eye Contact: + fair eye contact Motor Behavior: no abnormal motor movements Speech: normal rate/rhythm/volume of speech Affect: + constricted affect Mood: + anxious mood Thought Process: clear/coherent thought process Thought Content: + worthlessness Homicidal Thoughts: denies homicidal thoughts Estimated Intelligence: consistent with education level Insight: + limited insight Judgement: + limited judgement Results & Data Medications Administered Hydroxyzine HCl (Vistaril) 25 mg PO Q4H PRN PRN Reason: Anxiety Stop: 01/11/19 19:27 Last Admin: 12/13/18 08:37 Dose: 25 mg Documented by: [id number] Ibuprofen (Motrin) 600 mg PO Q6H PRN PRN Reason: Pain Stop: 01/12/19 18:59 Last Admin: 12/14/18 10:43 Dose: 600 mg Documented by: [id number] Admin: 12/13/18 19:10 Dose: 600 mg Documented by: [id number]
[2018-12-15] MEDS: VENLAFAXINE HCL XR 75 MG CAPXR PO SCH (08:54)
--- NOTE | 2018-12-15 11:28 | Psychiatric Progress Note ---
Date of Service December 15, 2018 Impression / Recommendations Impression 27-year-old white female currently in treatment with Delmy GAXIOLA at [facility], who was admitted with anxiety, depression and suicidality. Records from [facility] were reviewed regarding previous medication trials, and she is being cross tapered from citalopram to venlafaxine XR. Continue to work on PTSD symptoms with mindfulness and grounding. She requires inpatient mental health treatment due to the severity of her condition and the risk for self-harm if discharged. (1) Depression: 12/13 - Obtain records from [facility] for past med trials before making medication recommendations - records reveal past trials of Prozac, Klonopin and propranolol in addition to the Trintellix. The patient has no memory of a trial of Effexor or Cymbalta and so will proceed with a trial of Effexor 37.5 mg tomorrow AM and increasing to 75 mg thereafter. - Coordinate with current providers - Family meeting - Q 15 min checks for safety - Encourage participation in group and individual counseling - Assist the patient to explore mindfulness/grounding exercises - Encourage exercise - Safety planning 12/14 -Continue cross taper from citalopram to venlafaxine XR. -Family meeting with today. 12/15 -Citalopram has been discontinued, but the patient wants to remain on 75 mg of venlafaxine XR for now, as she thinks it is exacerbating anxiety and causing chest tightness and racing heart. She reports experiencing these symptoms chronically as part of her anxiety disorder, but feels there is something "artificial" about her more recent symptoms, so attributes them to medication. Consider providing a prescription at discharge that would allow her to further increase venlafaxine XR prior to her outpatient appointment, as it is not for several weeks. (2) PTSD (post-traumatic stress disorder): 12/13 - Obtain records from [facility] for past med trials before making medication recommendations - Coordinate with current providers - Family meeting - Q 15 min checks for safety - Encourage participation in group and individual counseling - Assist the patient to explore mindfulness/grounding exercises - Encourage exercise Inventory Assets Strengths: Intelligence, desire to get well Needs: Healthy coping strategies Risk Factors Assessment Male: No : Yes Do You Have Access To A Gun?: No Health Problems: No Mental Health Diagnoses: Yes Substance Use Disorders: No Previous Attempt: No Family History of Suicide: No Previous Psychiatric Hospitalization: No Smoker: No Protective Factors Assessment : Yes Responsible for Young Children: No 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 She is being cross tapered from citalopram to venlafaxine XR. Chief Complaint "I was just checking in with my parts". Review of Systems Sleep Information Total Hours of Sleep: 7.25 Sleep Comments: pt was awakened abruptly by her roommate-she was unable to resettle for sleep. she received a prn dose of vistaril for sleep aid. she stated she felt wired most of yesterday and after being awakened, felt like her heart was racing, felt like she does before giving a presentation at school. thinks it may be related to her new antidepressant Meal Information Percent Meal Consumed - Breakfast: 75 Percent Meal Consumed - Lunch: 100 Percent Meal Consumed - Dinner: 100 Medication Trials Citalopram up to 40 mg daily Escitalopram Fluoxetine 40 mg -anxiety worsened Duloxetine Trintellix Buspirone -prescribed, but patient never took it Propanolol Clonazepam as needed Subjective Subjective Patient was seen & assessed and interval progress reviewed with Nursing. Staff report she talked about working on cognitive reframing, noting a tendency to look at things as black and white. She continues to endorse passive suicidal thoughts, stating she would not feel safe outside of the hospital. Overnight, she reported being startled awake by an agitated roommate, and reported increased anxiety, which she attributed to venlafaxine as "I know myself and I can usually calm myself down, but I can't." Ultimately she accepted hydroxyzine and was moved to the safe room to sleep. On my assessment today, she was found in her room seated on her bed, and was very startled when she was addressed, stating that she was "checking in with my parts." She again relays the events overnight, stating that she felt anxious with chest tightness and "heart fluttering," and although she has had these anxiety symptoms in the past, thinks they are from the venlafaxine because "there was something artificial about them." She wants to continue on her current dose and have a very slow titration, but also reports being concerned because her outpatient PA is not able to see her until several weeks after discharge, and she wonders if her dose will need to be increased before then. She reports mood is vacillating between "content or irritated," and has been more irritated today, due to the noise and disruption on the unit. She denies suicidal thoughts and feels safe here. She is planning to contact her advisor today, and is nervous about it, as she has missed a good deal of school over the past month. She thinks she is improving, as yesterday she could not think of anything that she was looking forward to when she got out of the hospital, but today is looking forward to cuddling with her and painting.. She continues to feel "totally overwhelmed" at the thought of going home, but is hopeful she will be able to be discharged in the next day or 2. Summary of Past History Records from [facility] reviewed: Diagnosed with major depressive disorder, recurrent, PTSD, and binge eating disorder. At 11/28/2018 appointment, patient's citalopram had recently been increased to 40 mg daily, which initially helped with mood symptoms, but only briefly, and then she began feeling more depressed again. She was started on Trintellix, with a plan to discontinue citalopram if it was effective. At her 11/15/2018 appointment, she reported school stress, with intermittent periods of low mood, that were more pronounced, occurring 4 days a week, and interfering with ability to keep up with schoolwork. She reported episodic anxiety. Citalopram was increased to 40 mg daily. In 08/2018, she reported doing well on citalopram 20 mg daily, with resolution of depressive symptoms and only mild anxiety, not interfering with functioning. She had been prescribed buspirone, but never started it. Earlier in the month she would have had been seen and reported high anxiety with chest pressure and hypervigilance, excessive sweating, and difficulty functioning due to anxiety. Her Celexa was increased from 10 mg daily to 20 mg daily. At her 08/17/2018 appointment, she was taking fluoxetine 20 mg daily, which helped for a few days, but then mood worsened. She reported ongoing depressive and anxiety symptoms, and her dose was increased to 40 mg daily, and she was prescribed buspirone. Medication Trials Citalopram up to 40 mg daily Escitalopram Fluoxetine 40 mg -anxiety worsened Duloxetine Trintellix Buspirone -prescribed, but patient never took it Propanolol Clonazepam as needed Physical Exam Mental Examination Overweight WF appearing stated age. Seated in NAD with fair EC. Calm and cooperative. Good hygiene and grooming. Speech is spontaneous and normal rate, volume and tone. Mood is "irritated" and affect is congruent and stable. Thoughts are goal directed, and she denies SI. No HI, AVH or hallucinations. She is alert and oriented. Level of intelligence estimated to be at least average. Insight and judgment are fair-good. Vital Signs (Past 24 Hours) Last Vital Signs Temp 36.9 C 12/15/18 06:36 Pulse 84 12/15/18 06:37 Resp 18 12/15/18 06:36 BP 109/64 12/15/18 06:37 Pulse Ox 97 12/12/18 20:11 Results & Data Current Inpatient Medications Current Inpatient Medications: Current Inpatient Medications Acetaminophen (Tylenol) 650 mg PO Q4H PRN PRN Reason: Headache or Minor Fever Stop: 01/11/19 19:27 Al Hydrox/Mg Hydrox/Simethicone (Maalox) 30 ml PO Q4H PRN PRN Reason: GI Upset Stop: 01/11/19 19:27 Bismuth Subsalicylate (Kaopectate) 15 ml PO PRN PRN PRN Reason: Loose Stool Stop: 01/11/19 19:27 Hydroxyzine HCl (Vistaril) 50 mg PO HSZ PRN PRN Reason: Insomnia Stop: 01/11/19 19:27 Last Admin: 12/15/18 00:41 Dose: 50 mg Documented by: Hydroxyzine HCl (Vistaril) 25 mg PO Q4H PRN PRN Reason: Anxiety Stop: 01/11/19 19:27 Last Admin: 12/13/18 08:37 Dose: 25 mg Documented by: Ibuprofen (Motrin) 600 mg PO Q6H PRN PRN Reason: Pain Stop: 01/12/19 18:59 Last Admin: 12/14/18 10:43 Dose: 600 mg Documented by: Magnesium Hydroxide (Milk Of Magnesia) 30 ml PO DAILY PRN PRN Reason: Heartburn Stop: 01/11/19 19:27 Sodium Chloride ([place] Nasal) 1 - 2 sprays NA PRN PRN PRN Reason: Nasal Dryness/Congestion Stop: 01/11/19 19:27 Venlafaxine HCl (Effexor Extended Release) 75 mg PO QAM WILLAM Stop: 01/14/19 08:59 Last Admin: 12/15/18 08:54 Dose: 75 mg Documented by: Post Discharge Appointments Primary Care Physician Name Of Family Doctor: Janessa [facility] [place] Primary Care Psychiatrist Name of Psychiatrist: Delmy Sheffield PA-C Psychiatrist's Date of Appointment with Psychiatrist: 01/04/19 Time of Appointment with Psychiatrist: 2:45pm Psychiatric Appointment Comment: [address] [place] [address] Therapist Name of Therapist: Dasia Mejias Therapist's Date of Therapist Appointment: 12/19/18 Time of Therapist Appointment: 11am Therapy Appointment Comment: [address] [place] [address] Contact Information Discharge Discharge Address: [address] [place] [address], [place] [address] CPT Code CPT Code 37143 (1) Depression Depression Type: unspecified Qualified Code(s): F32.9 - Major depressive d isorder, single episode, unspecified
[2018-12-16] MEDS: VENLAFAXINE HCL XR 75 MG CAPXR PO SCH (09:06)
[2018-12-16] MEDS ORDERED: DESTROY THIS MEDICATION ONE (10:39)
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
== END 2018-12-16 11:30 | disposition home or self-care (01) | DRG 881 ==
LOC: ED 14:24 → 3S 18:56